=== PATIENT | male | born 1970 | race African-American/Black ===

== ENCOUNTER 2016-08-25 16:24 | Emergency (ER) | payer BC ==
[2016-08-25 16:45] VITALS: BP 174/94; PULSE 80; RESP 18; TEMP 97.9
--- NOTE | 2016-08-25 17:27 | ED ---
General Adult HPI - General Chief complaint: Abdominal Pain Stated complaint: Abdominal Pain Time Seen by Provider: 08/25/16 17:07 Source: patient, RN notes reviewed Mode of arrival: ambulatory Limitations: no limitations - History of Present Illness Initial comments: Patient 46-year-old male who presents emergency room today with a chief complaint of symptoms of nausea vomiting diarrhea over the last 2 days. Patient does admit that he had to work yesterday and today for this. Patient states that he was advised by his work at work note otherwise he would receive point. Patient does admit that he's had approximately 3 episodes of vomiting over the last 3 days. No episodes today. States appetite has been decreased but he has had some diarrhea. Does admit to some abdominal pain in the upper abdomen that he feels is consistent with muscle pain after vomiting. Patient denies any other complaints or associated symptoms. Patient denies any recent fever, chills, shortness of breath, chest pain, back pain, numbness or tingling , dysuria or hematuria, constipation or diarrhea, headaches or visual changes, or any other complaints. - Related Data Previous Rx's Medication Instructions Recorded Loperamide [Imodium] 2 mg PO DIRECTED #20 capsule 08/25/16 Ondansetron Odt [Zofran ODT] 4 mg PO Q8HR PRN #20 tab 08/25/16 Allergies Allergy/AdvReac Type Severity Reaction Status Date / Time No Known Allergies Allergy Verified 08/25/16 16:45 Review of Systems ROS Statement: Those systems with pertinent positive or pertinent negative responses have been documented in the HPI. ROS Other: All systems not noted in ROS Statement are negative. Past Medical History Past Medical History: No Reported History History of Any Multi-Drug Resistant Organisms: None Reported Past Surgical History: No Surgical Hx Reported Past Psychological History: No Psychological Hx Reported Smoking Status: Current every day smoker Past Alcohol Use History: Occasional Past Drug Use History: None Reported General Exam - General Exam Comments Initial Comments: General: The patient is awake and alert, in no distress, and does not appear acutely ill. Eye: Pupils are equal, round and reactive to light, extra-ocular movements are intact. No nystagmus. There is normal conjunctiva bilaterally. No signs of icterus. Ears, nose, mouth and throat: There are moist mucous membranes and no oral lesions. Neck: The neck is supple, there is no tenderness or JVD. Cardiovascular: There is a regular rate and rhythm. No murmur, rub or gallop is appreciated. Respiratory: Lungs are clear to auscultation, respirations are non-labored, breath sounds are equal. No wheezes, stridor, rales, or rhonchi. Gastrointestinal: Normal appearance abdomen. Normal bowel sounds. Abdomen soft on palpation. Patient does have tenderness epigastric with no rebound tenderness or guarding. Musculoskeletal: Normal ROM, no tenderness. Strength 5/5. Sensation intact. Pulses equal bilaterally 2+. Neurological: A&O x 3. CN II-XII intact, There are no obvious motor or sensory deficits. Coordination appears grossly intact. Speech is normal. Skin: Skin is warm and dry and no rashes or lesions are noted. Psychiatric: Cooperative, appropriate mood & affect, normal judgment. Limitations: no limitations Course Vital Signs 08/25/16 16:43 Temperature 97.9 F Pulse Rate 80 Respiratory 18 Rate Blood Pressure 174/94 O2 Sat by Pulse 96 Oximetry Medical Decision Making - Medical Decision Making It was discussed with patient about doing IV lab work and x-ray. He has declined. He states main reason that he 2 years is immediate workdoesn't point for work. She will be treated with Zofran for his nausea. Advised use over-the -counter Imodium for diarrhea. Advised return if symptoms increase or worsen. Disposition Clinical Impression: Nausea vomiting and diarrhea Disposition: HOME SELF-CARE Condition: Good Instructions: Gastroenteritis (ED) Additional Instructions: Please use medication as discussed. Please follow-up with family doctor in the next 2 days of symptoms have not improved. Please return to emergency room if the symptoms increase or worsen or for any other concerns. Prescriptions: Loperamide [Imodium] 2 mg PO DIRECTED #20 capsule Ondansetron Odt [Zofran ODT] 4 mg PO Q8HR PRN #20 tab PRN Reason: Nausea Time of Disposition: 17:26
== END 2016-08-25 17:35 | disposition home or self-care (01) ==
LOC: EC 16:24
DX: R19.7 Diarrhea, unspecified (principal); R11.2 Nausea with vomiting, unspecified; F17.210 Nicotine dependence, cigarettes, uncomplicated
CPT/HCPCS: 99283

== ENCOUNTER → 2020-09-14 | Outpatient (CLI) | payer BC | END | disposition home or self-care (01) | LOC: LABWHC1 16:16 | PROVIDERS: ATTEND Emergency Medicine | DX: Z20.822 Contact with and (suspected) exposure to COVID-19 (principal) | CPT/HCPCS: U0003; C9803; U0005 ==